=== PATIENT | female | born 1965 | race Two or more races ===

== ENCOUNTER 2017-04-26 09:10 | Emergency (ER) | payer MEDICAID ==
[~2017-04-26] VITALS: Ht 157.5 cm; Wt 70.3 kg
[~2017-04-26 09:10] MED LIST: KEFLEX500 M1 PO; LISINOPRIL 10MG10 MG PO; METFORMIN 500M500 MG PO; NORCO 325 MG-51 TAB PO; ZOFRAN ODT4 MG PO
--- OUTSIDE RECORDS SUMMARY | 2017-04-26 09:15 | External Medical Summary Rpt ---
Author Author [facility] Organization [facility] Address Unknown Phone Unavailable Care Team Providers Care Upholstery Sewer Name Role Phone DR GENE PCP [phone] Encounter [facility] [id number] Date(s): 11/08/16 - 11/09/16 [facility] [address] [place] [id number]- Discharge Diagnosis: Accelerated hypertension Discharge Disposition: IP Self Care / Home Attending Physician: JANINE CARRION Admitting Physician: JANINE CARRION Referring Physician: SARAH BARROW DO Reason for Visit UNSTABLE ANGINA Vital Signs Most recent 1 2 3 4 to oldest [Reference Range]: Temperature Oral (11/09/16 Oral (11/09/16 Oral (11/08/16 Source 2:59 PM) 4:01 AM) 6:06 PM) Temperature Fahrenheit Fahrenheit Fahrenheit Mode (11/09/16 2:59 (11/09/16 4:01 (11/08/16 6:06 PM) AM) PM) Temperature, 98.1 Deg F 98.2 Deg F 97.7 Deg F Fahrenheit (11/09/16 2:59 (11/09/16 7:00 (11/09/16 4:01 [96.8-99.7 PM) AM) AM) Deg F] Clinical 36.7 Deg C 36.8 Deg C 36.5 Deg C Temperature, (11/09/16 2:59 (11/09/16 7:00 (11/09/16 4:01 C PM) AM) AM) Peripheral 115 bpm Pulse Rate *HI*(11/08/16 [60-100 bpm] 6:06 PM) Heart Rate 100 bpm 93 bpm 84 bpm Monitored (11/09/16 2:59 (11/09/16 7:00 (11/09/16 6:06 [60-100 bpm] PM) AM) AM) Respiratory 20 20 23 Rate [14-20 Breaths/Min Breaths/Min Breaths/Min Breaths/Min] (11/09/16 2:59 (11/09/16 7:00 *HI*(11/09/16 PM) AM) 4:01 AM) Blood Arm, right Pressure upper Location (11/08/16 6:06 PM) Blood Non-Invasive Pressure BP Device Source (11/08/16 6:06 PM) Blood 137/91 mmHg 171/101 mmHg 155/97 mmHg Pressure (11/09/16 5:00 *HI*(11/09/16 *HI*(11/09/16 [90-140/60-9 PM) 2:59 PM) 11:00 AM) 0 mmHg] Mean 139 (11/09/16 108 (11/09/16 107 (11/09/16 Arterial 2:59 PM) 7:00 AM) 6:06 AM) Pressure (MAP)-BMDI Oxygen 95 % (11/09/16 95 % (11/08/16 96 % (11/08/16 Saturation 4:01 AM) 9:30 PM) 9:05 PM) [94-100 %] Oxygen Room air Room air Room air Room air Therapy Mode (11/09/16 9:08 (11/09/16 4:01 (11/08/16 (11/08/16 AM) AM) 10:27 PM) 10:27 PM) Blood 154/85 mmHg Pressure (11/09/16 5:05 Supine AM) Pulse Supine 91 bpm (11/09/16 5:05 AM) Blood 175/92 mmHg Pressure (11/09/16 5:05 Sitting AM) Pulse 95 bpm Sitting (11/09/16 5:05 AM) Blood 140/90 mmHg Pressure (11/09/16 5:05 Standing AM) Pulse 102 bpm Standing (11/09/16 5:05 AM) Height Stated Stated Stated Source (11/09/16 4:00 (11/08/16 (11/08/16 6:06 AM) 11:15 PM) PM) Height Entry [place] Format (11/09/16 4:00 (11/08/16 (11/08/16 6:06 AM) 11:15 PM) PM) Height/Lengt 5 ft (11/09/16 5 ft (11/08/16 5 ft (11/08/16 h, WELSH 4:00 AM) 11:15 PM) 6:06 PM) (ft) Height/Lengt 1 Inch 1 Inch 1 Inch h WELSH (11/09/16 4:00 (11/08/16 (11/08/16 6:06 AM) 11:15 PM) PM) CLINICALHEIG 154.94 cm 154.94 cm 154.94 cm HT (11/09/16 4:00 (11/08/16 (11/08/16 6:06 AM) 11:15 PM) PM) Weight Standing Source scale (11/08/16 11:15 PM) Weight Estimated Source, ED (11/08/16 6:06 PM) Weight Entry [place] Format (11/08/16 11:15 PM) Weight 155 lb [place] lb (11/08/16 11:15 PM) Weight 4 oz (11/08/16 [place] oz 11:15 PM) CLINICALWEIG 70.57 kg HT (11/08/16 11:15 PM) Body Surface 1.7 m2 Area (BSA) (11/08/16 11:15 PM) Body Mass 29.4 kg/m2 Index *HI*(11/08/16 [19.0-24.0 11:15 PM) kg/m2] Routine Standing Weight scale Source (11/09/16 4:00 AM) Routine [place] Weight Entry (11/09/16 4:00 Format AM) Routine 155 lb Weight, (11/09/16 4:00 Pounds AM) Routine 4 oz (11/09/16 Weight, 4:00 AM) Ounces Routine 70.57 kg Weight (11/09/16 4:00 Calculation AM) Body Surface 1.7 m2 Area (BSA), (11/09/16 4:00 Routine AM) [place] Body 47 kg 47 kg Weight (11/08/16 (11/08/16 6:06 11:15 PM) PM) Problem List Condition Effective Status Health Informant Dates Status Chest Active pain(Confirm ed) Diabetes(Con Active firmed) HTN Active (hypertensio n)(Confirmed ) Depression(C Active onfirmed) Allergies, Adverse Reactions, Alerts No Known Allergies Medications amLODIPine (amLODIPine 5 mg oral tablet)1 Tab, Oral, Every Day, Refills: 0Ordering provider: ESPERANZA MATHUR MD-INT aspirin (aspirin 81 mg oral delayed release tablet)1 Tab, Oral, Every Day, Refills: 0 atorvastatin (Lipitor 40 mg oral tablet)1 Tab, Oral, At Bedtime, Refills: 0Ordering provider: ESPERANZA MATHUR MD-INT carvedilol (Coreg 6.25 mg oral tablet)1 Tab, Oral, Two Times A Day, Refills: 0Ordering provider: ESPERANZA MATHUR MD-INT DULoxetine 20 mg, Oral, Every Day, Refills: 0 lisinopril 20 mg, Oral, Every Day, Refills: 0 metFORMIN 500 mg, Oral, Two Times A Day, Refills: 0 Results GENERAL CHEMISTRY Most recent 1 2 3 to oldest [Reference Range]: Sodium Level 136 mmol/L 139 mmol/L [136-146 (11/09/16 4:27 AM) (11/08/16 8:08 PM) mmol/L] Potassium 4.1 mmol/L 3.9 mmol/L Level (11/09/16 4:27 AM) (11/08/16 8:08 PM) [3.5-5.1 mmol/L] Chloride 101 mmol/L 104 mmol/L Level *LOW* (11/08/16 8:08 PM) [102-112 (11/09/16 4:27 AM) mmol/L] Carbon 28 mmol/L 27 mmol/L Dioxide (11/09/16 4:27 AM) (11/08/16 8:08 PM) Level [21-32 mmol/L] Anion Gap 11 12 [9-20] (11/09/16 4:27 AM) (11/08/16 8:08 PM) Glucose 391 mg/dL 448 mg/dL Level *HI* *HI* [74-106 (11/09/16 4:27 AM) (11/08/16 8:08 PM) mg/dL] Blood Urea 14 mg/dL 14 mg/dL Nitrogen (11/09/16 4:27 AM) (11/08/16 8:08 PM) [7-22 mg/dL] Creatinine 0.70 mg/dL 0.70 mg/dL Level (11/09/16 4:27 AM) (11/08/16 8:08 PM) [0.55-1.02 mg/dL] eGFR 107 mL/min/1.73m2 107 mL/min/1.73m2 [>=60 (11/09/16 4:27 AM) (11/08/16 8:08 PM) mL/min/1.73m 2] eGFR 88 mL/min/1.73m2 88 mL/min/1.73m2 NonAfrican (11/09/16 4:27 AM) (11/08/16 8:08 PM) [>=60 mL/min/1.73m 2] Bun/Creatini 20.0 20.0 ne (11/09/16 4:27 AM) (11/08/16 8:08 PM) [8.0-20.0] Calcium 8.9 mg/dL 8.3 mg/dL Level (11/09/16 4:27 AM) *LOW* [8.5-10.1 (11/08/16 8:08 PM) mg/dL] Magnesium 1.9 mg/dL 1.9 mg/dL Level (11/09/16 7:03 AM) (11/09/16 4:27 AM) [1.5-2.4 mg/dL] Device Notified Nurse Notified Nurse Notified Nurse Comment 1 RBV *NA*(11/09/16 RBV *NA*(11/09/16 RBV *NA*(11/09/16 1:51 PM) 9:12 AM) 6:37 AM) Glucose POC2 279 mg/dL 264 mg/dL 327 mg/dL [70-110 *HI* *HI* *HI* mg/dL] (11/09/16 4:01 PM) (11/09/16 1:51 PM) (11/09/16 9:12 AM) Calcium 1.22 mmol/L Ionized (11/09/16 7:03 AM) [1.12-1.32 mmol/L] CARDIAC SPECIFIC MARKERS Most recent 1 2 3 to oldest [Reference Range]: CK [26-192 52 Units/Liter 57 Units/Liter Units/Liter] (11/09/16 7:03 AM) (11/09/16 4:27 AM) Troponin I 0.027 ng/mL 0.025 ng/mL Ultra (11/09/16 4:27 AM) (11/08/16 8:08 PM) [0.015-0.045 ng/mL] CK MB 2.50 ng/mL 2.50 ng/mL [0.50-3.60 (11/09/16 4:42 PM) (11/09/16 7:03 AM) ng/mL] ProBNP 268 pg/mL [0-125 *HI* pg/mL] (11/08/16 8:08 PM) HEMATOLOGY Most recent 1 2 3 to oldest [Reference Range]: WBC 6.9 K/uL [4.0-10.0 (11/08/16 8:08 PM) K/uL] RBC 5.66 Million/uL [3.93-5.22 *HI* Million/uL] (11/08/16 8:08 PM) Hgb 13.3 g/dL [11.2-15.7 (11/08/16 8:08 PM) g/dL] Hct 42.2 % [34.1-44.9 (11/08/16 8:08 PM) %] MCV 74.6 fL [79.0-94.8 *LOW* fL] (11/08/16 8:08 PM) MCH 23.5 pg [25.6-32.2 *LOW* pg] (11/08/16 8:08 PM) MCHC 31.5 Gram/dL [32.2-36.5 *LOW* Gram/dL] (11/08/16 8:08 PM) Platelet 196 K/uL Count (11/08/16 8:08 PM) [163-369 K/uL] MPV 11.2 fL [9.4-12.4 (11/08/16 8:08 PM) fL] RDW 13.5 % [11.6-14.4 (11/08/16 8:08 PM) %] Neut % 61.7 % [34.0-71.0 (11/08/16 8:08 PM) %] Neut # 4.24 K/uL [1.56-6.13 (11/08/16 8:08 PM) K/uL] Lymph % 29.3 % [19.3-53.1 (11/08/16 8:08 PM) %] Lymph # 2.01 x10(3)/uL [1.00-3.90 (11/08/16 8:08 PM) x10(3)/uL] Steele % 7.1 % [3.0-9.0 %] (11/08/16 8:08 PM) [place] # 0.49 K/uL [0.16-1.00 (11/08/16 8:08 PM) K/uL] Eos % 1.5 % [0.0-7.0 %] (11/08/16 8:08 PM) Eos # 0.10 x10(3)/uL [0.00-0.80 (11/08/16 8:08 PM) x10(3)/uL] Baso % 0.3 % [0.0-1.5 %] (11/08/16 8:08 PM) Baso # 0.02 x10(3)/uL [0.00-0.20 (11/08/16 8:08 PM) x10(3)/uL] RBC Abnormal Morphology (11/08/16 8:08 PM) Teardrop 1+ Cells *ABN* (11/08/16 8:08 PM) Platelet Ct Adequate Estimate (11/08/16 8:08 PM) [Adequate] Reticulocyte 2.23 % [0.50-1.70 *HI* %] (11/09/16 4:27 AM) Slide Review Technologist (11/08/16 8:08 PM) IG# 0.01 x10(3)/uL [0.00-0.05 (11/08/16 8:08 PM) x10(3)/uL] IG% 0.10 % [0.00-0.60 (11/08/16 8:08 PM) %] ENDOCRINOLOGY Most recent 1 2 3 to oldest [Reference Range]: TSH 2.730 mcInt [0.358-3.740 Units/mL (11/09/16 mcInt 4:27 AM) Units/mL] Iron Studies Most recent 1 2 3 to oldest [Reference Range]: Iron Level 54 mcg/dL [50-170 (11/09/16 4:27 AM) mcg/dL] % Iron 15.3 % Saturation (11/09/16 4:27 AM) [15.0-55.0 %] Ferritin 51.3 ng/mL Level (11/09/16 4:27 AM) [8.0-252.0 ng/mL] TIBC 354 mcg/dL [250-450 (11/09/16 4:27 AM) mcg/dL] Immunizations No data available for this section Procedures No data available for this section Social History Social History Response Type Smoking Status Never smoker Assessment and Plan Extracted from: Title: Freetext Note Author: KAREEN, Date: 11/09/16 CRICKET AIKEN Discharge dictated. #[id number]. Extracted from: Title: Daily progress Author: KAREEN, Date: 11/09/16 note ESPERANZA Mcclellan MD-INT Subjective Patient reports a headache No chest pain now Reports she is hungry Awaiting stress evlauation No nausea now No absominal pain. No fever No cough. ObjectiveVS/MeasurementsVital Measurements11/09/2016 9:08 EDT Systolic Blood Pressure 159 mmHg HI Diastolic Blood Pressure 86 mmHg Oxygen Therapy Mode Room air11/09/2016 7:00 EDT Temperature, Fahrenheit 98.2 Deg F Clinical Temperature, C 36.8 Deg C Heart Rate Monitored 93 bpm Respiratory Rate 20 Breaths/Min Systolic Blood Pressure 171 mmHg HI Diastolic Blood Pressure 83 mmHg Mean Arterial Pressure (MAP)-BMDI 108General: Alert and oriented, anxious.Eye: Pupils are equal, round and reactive to light.HENT: Normocephalic.Neck: Supple, Non-tender, No jugular venous distention.Respiratory: Lungs are clear to auscultation, Respirations are non-labored, Breath sounds are equal, Symmetrical chest wall expansion.Cardiovascular: Normal rate, Regular rhythm.Gastrointestinal: Soft, Non-tender, Non-distended, Normal bowel sounds.Musculoskeletal: Normal range of motion, No tenderness, No swelling.Integumentary: Warm, Dry.Neurologic: Alert, Oriented.Psychiatric: anxious. Cardiovascular: Normal rate, Regular rhythm. Gastrointestinal: Soft, Non-tender, Non-distended, Normal bowel sounds. Musculoskeletal: Normal range of motion, No tenderness, No swelling. Integumentary: Warm, Dry. Neurologic: Alert, Oriented. Psychiatric: anxious. Assessment Interpretation of Results Diagnostic tests. NOV 09 04:27 136 | L 101 | 14 / H 391 4.1 | 28 | 0.70 \\ NOV 09 04:27 \\ 13.3 / 6.9 196 / 42.2 \\ Plan Accelerated hypertension Onnitro drip with presentation with chest pain Resume her lisnopril Adding norvasc. Wean as toleated CT head negative for bleed. Chest pain Enzymes negative. Brenda related to #1 Awaiting ECHO and stress test Cardiology evaluating Diabetes Place on insulin wtih coverge and obtain A1c Hold metformin. CXR reviewed Currently no concern for pneumonia Disposition:Await stress test Follow blood sugar Wean nitro and BP meds adjustment Discharge plans likely in am if above normal and BP better. Discussed with patient Time spent with above 30 minutes. Hospital Discharge Instructions Patient EducationHypertension"
--- OUTSIDE RECORDS SUMMARY | 2017-04-26 09:15 | External Medical Summary Rpt ---
Author Author [facility] Organization [facility] Address Unknown Phone Unavailable Care Team Providers Care Corporate Meeting Planner Name Role Phone DR GENE PCP [phone] Encounter [facility] [id number] Date(s): 11/08/16 - 11/09/16 [facility] [address] [place] [address]- Discharge Diagnosis: Accelerated hypertension Discharge Disposition: IP [...] 6:06 AM) 11:15 PM) PM) Height Entry [place] Format (11/09/16 4:00 (11/08/16 (11/08/16 6:06 AM) 11:15 PM) PM) Height/Lengt 5 ft (11/09/16 5 ft (11/08/16 5 ft (11/08/16 h, [place]PPER [place] 4:00 AM) 11:15 PM) 6:06 PM) (ft) Height/Lengt 1 Inch 1 Inch 1 Inch h [place]ER [place] (11/09/16 4:00 (11/08/16 (11/08/16 6:06 AM) 11:15 PM) PM) CLINICALHEIG 154.94 cm 154.94 cm 154.94 cm HT (11/09/16 4:00 (11/08/16 (11/08/16 6:06 AM) 11:15 PM) PM) Weight Standing Source scale (11/08/16 11:15 PM) Weight Estimated Source, ED (11/08/16 6:06 PM) Weight Entry [place] Format (11/08/16 11:15 PM) Weight 155 lb [place] lb (11/08/16 11:15 PM) Weight 4 oz (11/08/16 [place] oz 11:15 PM) CLINICALWEIG 70.57 kg HT (11/08/16 11:15 PM) Body Surface 1.7 m2 Area (BSA) (11/08/16 11:15 PM) Body Mass 29.4 kg/m2 Index *HI*(11/08/16 [19.0-24.0 11:15 PM) kg/m2] Routine Standing Weight scale Source (11/09/16 4:00 AM) Routine [place] Weight Entry (11/09/16 4:00 Format AM) Routine 155 lb Weight, (11/09/16 4:00 Pounds AM) Routine 4 oz (11/09/16 Weight, 4:00 AM) Ounces Routine 70.57 kg Weight (11/09/16 4:00 Calculation AM) Body Surface 1.7 m2 Area (BSA), (11/09/16 4:00 Routine AM) [place] Body 47 kg 47 kg Weight (11/08/16 [...] 2.01 x10(3)/uL [1.00-3.90 (11/08/16 8:08 PM) x10(3)/uL] [place] % 7.1 % [3.0-9.0 %] (11/08/16 8:08 PM) [place] # 0.49 K/uL [0.16-1.00 (11/08/16 8:08 PM) [...] KAREEN, Date: 11/09/16 CRICKET AIKEN Discharge dictated. #[id number]. Extracted from: Title: Daily progress Author: KAREEN, [...]
--- OUTSIDE RECORDS SUMMARY | 2017-04-26 09:16 | External Medical Summary Rpt | CCD ---
Author Author , [facility] Organization [facility] Address Unknown Phone [email or web address] Purpose Continuity of Care Document - 09-02-2016 through 2016 Problems Code Diagnosis DOS Provider Status E11.65 TYPE 2 04-24-2017 DIABETES MELLITUS WITH HYPERGLYCEM IA I10 ESSENTIAL 04-24-2017 (PRIMARY) HYPERTENSIO N R73.9 HYPERGLYCEM 04-24-2017 IA, UNSPECIFIED Z79.899 OTHER LONG 04-24-2017 TERM (CURRENT) DRUG THERAPY E11.9 TYPE 2 04-13-2017 DIABETES MELLITUS WITHOUT COMPLICATIO NS H10.9 UNSPECIFIED 04-13-2017 CONJUNCTIVI TIS B37.3 CANDIDIASIS 01-09-2017 OF VULVA AND VAGINA F17.210 NICOTINE 01-09-2017 DEPENDENCE, CIGARETTES, UNCOMPLICAT ED R30.0 DYSURIA 01-09-2017 S30.814A ABRASION OF 01-09-2017 VAGINA AND VULVA, INITIAL ENCOUNTER R07.9 CHEST PAIN, 11-29-2016 UNSPECIFIED S22.32XA FRACTURE OF 11-29-2016 ONE RIB, LEFT SIDE, INITIAL ENCOUNTER FOR CLOSED FRACTURE Z79.84 BAKER PASTRY 11-29-2016 (CURRENT) USE OF ORAL HYPOGLYCEMI C DRUGS J40 BRONCHITIS, 10-05-2016 NOT SPECIFIED ACUTE OR CHRONIC R06.02 SHORTNESS 10-05-2016 OF BREATH R00.0 TACHYCARDIA 09-16-2016 , UNSPECIFIED R07.89 OTHER CHEST 09-16-2016 PAIN R11.2 NAUSEA WITH 09-16-2016 VOMITING, UNSPECIFIED R94.31 ABNORMAL 09-16-2016 ELECTROCARD IOGRAM [ECG] [EKG] E66.9 OBESITY, 09-02-2016 UNSPECIFIED G43.901 MIGRAINE, 09-02-2016 UNSPECIFIED , NOT INTRACTABLE , WITH STATUS MIGRAINOSUS I20.0 UNSTABLE 09-02-2016 ANGINA Z68.29 BODY MASS 09-02-2016 INDEX (BMI) 29.0-29.9, ADULT E86.0 Dehydration F32.9 Major depressive disorder, single episode, unspecified 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
--- OUTSIDE RECORDS SUMMARY | 2017-04-26 09:16 | External Medical Summary Rpt | CCD ---
Author Author [facility] Organization [facility] Address Unknown Phone Unavailable Purpose Continuity of Care Document - through 2016
--- OUTSIDE RECORDS SUMMARY | 2017-04-26 09:16 | External Medical Summary Rpt | CCD ---
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
--- OUTSIDE RECORDS SUMMARY | 2017-04-26 09:16 | External Medical Summary Rpt ---
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 Role Phone DR GENE PCP [phone] Encounter [facility] [id number] Date(s): 03/02/17 - 03/03/17 [facility] [address] [place] [address]- Discharge Diagnosis: Diarrhea Discharge Diagnosis: Dehydration Discharge Diagnosis: Headache Discharge Diagnosis: Hyperglycemia Discharge Disposition: OP Self Care or Home Attending Physician: KENNEY HOLLINS MD Admitting Physician: KENNEY HOLLINS MD Referring Physician: KENNEY HOLLINS MD Reason for Visit DIARRHEA, UNSPECIFIED Vital Signs Most recent 1 2 3 to oldest [Reference Range]: Temperature Oral Oral Oral Source (03/03/17 6:33 AM) (03/03/17 2:16 AM) (03/02/17 6:25 PM) Temperature Fahrenheit Fahrenheit Fahrenheit Mode (03/03/17 6:33 AM) (03/03/17 2:16 AM) (03/02/17 6:47 PM) Temperature, 97.5 Deg F 98.3 Deg F 98.1 Deg F Fahrenheit (03/03/17 6:33 AM) (03/03/17 2:16 AM) (03/02/17 6:47 PM) [96.8-99.7 Deg F] Clinical 36.4 Deg C 36.7 Deg C 36.5 Deg C Temperature, (03/03/17 6:33 AM) (03/02/17 6:47 PM) (03/02/17 6:25 PM) C Peripheral 82 bpm 74 bpm 99 bpm Pulse Rate (03/03/17 6:33 AM) (03/03/17 2:16 AM) (03/02/17 6:47 PM) [60-100 bpm] Respiratory 19 Breaths/Min 17 Breaths/Min 18 Breaths/Min Rate [14-20 (03/03/17 6:33 AM) (03/03/17 2:16 AM) (03/02/17 6:47 PM) Breaths/Min] Blood Arm, right upper Arm, left upper Pressure (03/03/17 6:33 AM) (03/02/17 6:25 PM) Location Blood Non-Invasive BP Non-Invasive BP Pressure Device (03/03/17 Device (03/02/17 Source 6:33 AM) 6:25 PM) Blood 105/65 mmHg 144/62 mmHg 156/72 mmHg Pressure (03/03/17 6:33 AM) *HI* *HI* [90-140/60-9 (03/03/17 2:16 AM) (03/02/17 6:47 PM) 0 mmHg] Mean 89 mmHg 100 mmHg Arterial (03/03/17 2:16 AM) (03/02/17 6:25 PM) Pressure (MAP) Oxygen 96 % 94 % Saturation (03/03/17 2:16 AM) (03/02/17 6:25 PM) [94-100 %] Oxygen Room air Room air Room air Therapy Mode (03/03/17 6:33 AM) (03/03/17 2:16 AM) (03/02/17 6:25 PM) Height Estimated Source (03/02/17 6:47 PM) Height Entry [place] Format (03/02/17 6:47 PM) Height/Lengt 5 ft h, [place] (03/02/17 6:47 PM) (ft) Height/Lengt 2 Inch h POLISH (03/02/17 6:47 PM) CLINICALHEIG 157.48 cm HT (03/02/17 6:47 PM) Weight Critical Source, ED estimated dosing weight (03/02/17 6:47 PM) Weight Entry [place] Format (03/02/17 6:47 PM) Weight 149.93 lb [place] lb (03/02/17 6:47 PM) CLINICALWEIG 68.15 kg HT (03/02/17 6:47 PM) Body Surface 1.69 m2 Area (BSA) (03/02/17 6:47 PM) Body Mass 27.5 kg/m2 Index (BMI) *HI* [19-24 (03/02/17 6:47 PM) kg/m2] [place] Body 49.73 kg Weight (03/02/17 6:47 PM) Problem List Condition Effective Status Health Informant Dates Status Chest Active pain(Confirm ed) Diabetes(Con Active firmed) HTN Active (hypertensio n)(Confirmed ) Depression(C Active onfirmed) Allergies, Adverse Reactions, Alerts No Known Allergies Medications amLODIPine (amLODIPine 5 mg oral tablet)1 Tablet(s) Oral Every Day. Refills: 0.Ordering provider: ESPERANZA MATHUR MD-INT aspirin (aspirin 81 mg oral delayed release tablet)1 Tablet(s) Oral Every Day. atorvastatin (Lipitor 40 mg oral tablet)1 Tablet(s) Oral At Bedtime. Refills: 0.Ordering provider: ESPERANZA MATHUR MD-INT carvedilol (Coreg 6.25 mg oral tablet)1 Tablet(s) Oral Two Times A Day. Refills: 0.Ordering provider: ESPERANZA MATHUR MD-INT dicyclomine (Bentyl 10 mg oral capsule)2 Capsule(s) Oral Four Times A Day for 7 Day(s). Refills: 0.Ordering provider: DAVIE DOMINGUEZ PA DULoxetine 20 Milligram(s) Oral Every Day. lisinopril 20 Milligram(s) Oral Every Day. metFORMIN 500 Milligram(s) Oral Two Times A Day. ondansetron (Zofran ODT 4 mg oral tablet, disintegrating)1 Tablet(s) Oral Three Times A Day. Refills: 0.Ordering provider: DAVIE DOMINGUEZ PA Results GENERAL CHEMISTRY Most recent 1 2 3 to oldest [Reference Range]: Sodium Level 137 mmol/L [136-146 (03/02/17 10:04 mmol/L] PM) Potassium 5.5 mmol/L Level *HI*(03/02/17 [3.5-5.1 10:04 PM) mmol/L] Chloride 101 mmol/L Level *LOW*(03/02/17 [102-112 10:04 PM) mmol/L] Carbon 25 mmol/L Dioxide (03/02/17 10:04 Level [21-32 PM) mmol/L] Anion Gap 16 (03/02/17 10:04 [9-20] PM) Glucose 386 mg/dL Level *HI*(03/02/17 [74-106 10:04 PM) mg/dL] Blood Urea 23 mg/dL Nitrogen *HI*(03/02/17 [7-22 mg/dL] 10:04 PM) Creatinine 0.70 mg/dL Level (03/02/17 10:04 [0.55-1.02 PM) mg/dL] eGFR 127 mL/min/1.73m2 106 mL/min/1.73m2 [>=60 (03/03/17 12:55 (03/02/17 10:04 mL/min/1.73m AM) PM) 2] eGFR 105 mL/min/1.73m2 88 mL/min/1.73m2 NonAfrican (03/03/17 12:55 (03/02/17 10:04 [>=60 AM) PM) mL/min/1.73m 2] Bun/Creatini 32.9 *HI*(03/02/17 ne 10:04 PM) [8.0-20.0] (03/02/17 10:04 PM) Calcium 9.5 mg/dL Level (03/02/17 10:04 [8.5-10.1 PM) mg/dL] Protein 7.8 Gram/dL Total (03/02/17 10:04 [6.4-8.2 PM) Gram/dL] Albumin 3.3 Gram/dL Level *LOW*(03/02/17 [3.4-5.0 10:04 PM) Gram/dL] Globulin 4.5 Gram/dL [1.5-4.5 (03/02/17 10:04 Gram/dL] PM) A/G Ratio 0.7 *LOW*(03/02/17 [1.1-2.5] 10:04 PM) (03/02/17 10:04 PM) Bilirubin 0.5 mg/dL Total (03/02/17 10:04 [0.2-1.3 PM) mg/dL] Alk Phos 61 Units/Liter [27-136 (03/02/17 10:04 Units/Liter] PM) AST [5-37 33 Units/Liter Units/Liter] (03/02/17 10:04 PM) ALT [12-78 13 Units/Liter Units/Liter] (03/02/17 10:04 PM) Sodium POC 137 mmol/L [138-146 *LOW*(03/03/17 mmol/L] 12:55 AM) Potassium 5.1 mmol/L POC [3.5-4.9 *HI*(03/03/17 mmol/L] 12:55 AM) Chloride POC 100 mmol/L [98-109 (03/03/17 12:55 mmol/L] AM) CO2 POC 28.0 mmol/L [24.0-29.0 (03/03/17 12:55 mmol/L] AM) Anion Gap 15.0 mmol/L POC (03/03/17 12:55 [10.0-20.0 AM) mmol/L] Glucose POC 352 mg/dL [70-105 *HI*(03/03/17 mg/dL] 12:55 AM) Device Notified MD RBV Notified Nurse Notified Nurse Comment 1 *NA*(03/03/17 6:28 RBV *NA*(03/03/17 RBV *NA*(03/03/17 AM) 3:31 AM) 2:27 AM) Device Protocols Comment 2 Followed *NA*(03/03/17 6:28 AM) Glucose POC2 339 mg/dL 344 mg/dL 385 mg/dL [70-110 *HI*(03/03/17 6:28 *HI*(03/03/17 5:37 *HI*(03/03/17 3:31 mg/dL] AM) AM) AM) BUN POC 22 mg/dL (03/03/17 [8-26 mg/dL] 12:55 AM) Creatinine 0.6 mg/dL POC [0.6-1.3 (03/03/17 12:55 mg/dL] AM) Ca Ioniz POC 1.18 mmol/L [1.12-1.32 (03/03/17 12:55 mmol/L] AM) Lipase Level 476 Units/Liter [73-393 *HI*(03/02/17 Units/Liter] 10:04 PM) Lactic Acid 0.7 mmol/L 2.6 mmol/L Level 1(03/03/17 12:06 2*CRIT*(03/02/17 [0.4-2.0 AM) 10:04 PM) mmol/L] 1Result Comment: Released without repeat.2Result Comment: CALLED TO:Radha COVARRUBIASManuela DATE/TIME CALLED:03/02/2017 23:03:50 EDT READ BACK AND VERIFIED:yes CALLED BY: [email or web address] Most recent 1 2 3 to oldest [Reference Range]: WBC 7.1 K/uL (03/02/17 [4.0-10.0 10:04 PM) K/uL] RBC 6.05 Million/uL [3.93-5.22 *HI*(03/02/17 Million/uL] 10:04 PM) Hgb 14.3 g/dL [11.2-15.7 (03/02/17 10:04 g/dL] PM) Hct 45.0 % [34.1-44.9 *HI*(03/02/17 %] 10:04 PM) MCV 74.4 fL [79.0-94.8 *LOW*(03/02/17 fL] 10:04 PM) MCH 23.6 pg [25.6-32.2 *LOW*(03/02/17 pg] 10:04 PM) MCHC 31.8 Gram/dL [32.2-36.5 *LOW*(03/02/17 Gram/dL] 10:04 PM) Platelet 215 K/uL (03/02/17 Count 10:04 PM) [163-369 K/uL] MPV 11.2 fL (03/02/17 [9.4-12.4 10:04 PM) fL] RDW 14.0 % (03/02/17 [11.6-14.4 10:04 PM) %] Neut % 55.1 % (03/02/17 [34.0-71.0 10:04 PM) %] Neut # 3.92 K/uL [1.56-6.13 (03/02/17 10:04 K/uL] PM) Lymph % 33.0 % (03/02/17 [19.3-53.1 10:04 PM) %] Lymph # 2.34 x10(3)/uL [1.00-3.90 (03/02/17 10:04 x10(3)/uL] PM) Burt % 8.6 % (03/02/17 [3.0-9.0 %] 10:04 PM) Burt # 0.61 K/uL [0.16-1.00 (03/02/17 10:04 K/uL] PM) Eos % 2.0 % (03/02/17 [0.0-7.0 %] 10:04 PM) Eos # 0.14 x10(3)/uL [0.00-0.80 (03/02/17 10:04 x10(3)/uL] PM) Baso % 0.7 % (03/02/17 [0.0-1.5 %] 10:04 PM) Baso # 0.05 x10(3)/uL [0.00-0.20 (03/02/17 10:04 x10(3)/uL] PM) Hematocrit 44.0 % (03/03/17 POC 12:55 AM) [38.0-51.0 %] Hemoglobin 15.0 Gram/dL POC (03/03/17 12:55 [12.0-17.0 AM) Gram/dL] Slide Review No (03/02/17 10:04 PM) IG# 0.04 x10(3)/uL [0.00-0.05 (03/02/17 10:04 x10(3)/uL] PM) IG% 0.60 % (03/02/17 [0.00-0.60 10:04 PM) %] URINALYSIS Most recent 1 2 3 to oldest [Reference Range]: Urine Type U CleanCatch (03/03/17 1:36 AM) Urine Color Yellow *NA*(03/03/17 1:36 AM) Urine Clear (03/03/17 Appearance 1:36 AM) Urine >1.030 Specific *HI*(03/03/17 1:36 [place] AM) [1.005-1.030 ] Urine pH 5.0 *LOW*(03/03/17 Dipstick 1:36 AM) [6.0-8.0] (03/03/17 1:36 AM) Urine Negative (03/03/17 Leukocyte 1:36 AM) Esterase [Negative] Urine Negative (03/03/17 Nitrite 1:36 AM) [Negative] Urine 100 *ABN*(03/03/17 Protein 1:36 AM) Dipstick (03/03/17 1:36 AM) [Negative] Urine >=1000 Glucose *ABN*(03/03/17 Dipstick 1:36 AM) [Negative] Urine Negative (03/03/17 Ketones 1:36 AM) Dipstick [Negative] Urine 0.2 EU/dL Urobilinogen (03/03/17 1:36 AM) Dipstick Urine Negative (03/03/17 Bilirubin 1:36 AM) Dipstick [Negative] Urine Blood Negative (03/03/17 Dipstick 1:36 AM) [Negative] Ur WBC 2-5 /HPF *ABN*(03/03/17 1:36 AM) Ur Bacteria 1+ *ABN*(03/03/17 1:36 AM) (03/03/17 1:36 AM) Ur Mucous 1+ *ABN*(03/03/17 1:36 AM) (03/03/17 1:36 AM) Ur Amorph Trace *ABN*(03/03/17 1:36 AM) Ur 2-5 /HPF Epithelial *ABN*(03/03/17 Cells 1:36 AM) Ur Hyaline 0-2 /LPF Casts *ABN*(03/03/17 1:36 AM) Immunizations No data available for this section Procedures No data available for this section Social History Social History Response Type Smoking Status Never smoker Assessment and Plan No data available for this section Hospital Discharge Instructions Patient EducationDehydration, Adult Diarrhea Food Choices to Help Relieve Diarrhea, Adult General Headache Without Cause Hyperglycemia
--- OUTSIDE RECORDS SUMMARY | 2017-04-26 09:16 | External Medical Summary Rpt ---
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 Role Phone DR GENE PCP [phone] Encounter [facility] [id number] Date(s): 03/02/17 - 03/03/17 [facility] [address] [place] [id number]- Discharge Diagnosis: Diarrhea Discharge Diagnosis: Dehydration Discharge [...] Estimated Source (03/02/17 6:47 PM) Height Entry [place] Format (03/02/17 6:47 PM) Height/Lengt 5 ft h, [place] (03/02/17 6:47 PM) (ft) Height/Lengt 2 Inch h [place] (03/02/17 6:47 PM) CLINICALHEIG 157.48 cm HT (03/02/17 6:47 PM) Weight Critical Source, ED estimated dosing weight (03/02/17 6:47 PM) Weight Entry [place] Format (03/02/17 6:47 PM) Weight 149.93 lb [place] lb (03/02/17 6:47 PM) CLINICALWEIG 68.15 kg HT (03/02/17 6:47 PM) Body Surface 1.69 m2 Area (BSA) (03/02/17 6:47 PM) Body Mass 27.5 kg/m2 Index (BMI) *HI* [19-24 (03/02/17 6:47 PM) kg/m2] [place] Body 49.73 kg Weight (03/02/17 6:47 PM) [...] 2.34 x10(3)/uL [1.00-3.90 (03/02/17 10:04 x10(3)/uL] PM) [place] % 8.6 % (03/02/17 [3.0-9.0 %] 10:04 PM) [place] # 0.61 K/uL [0.16-1.00 (03/02/17 10:04 K/uL] [...] 1:36 AM) Urine >1.030 Specific *HI*(03/03/17 1:36 [place] AM) [1.005-1.030 ] Urine pH 5.0 *LOW*(03/03/17 [...]
--- OUTSIDE RECORDS SUMMARY | 2017-04-26 09:17 | External Medical Summary Rpt ---
Author Author [facility] [employer] [employer] Organization [facility] Address Unknown Phone Unavailable
--- OUTSIDE RECORDS SUMMARY | 2017-04-26 09:17 | External Medical Summary Rpt | CCD ---
Demographics Preferred Language Lao Marital Status Unknown Anglican Affiliation Unknown Race Unknown Ethnic Group Unknown Author Author , NANO SUAREZ Address Unknown Phone Immunization Unable to retrieve immunization data due to connection failure with Immunization Registry. Please try again later.
--- OUTSIDE RECORDS SUMMARY | 2017-04-26 09:17 | External Medical Summary Rpt | CCD ---
Demographics Preferred Language Romanian Marital Status Unknown Muslim Affiliation Unknown Race Unknown Ethnic Group Unknown Author Author , NANO SUAREZ Address Unknown Phone Immunization Unable to retrieve immunization data due to connection failure with Immunization Registry. Please try again later.
--- NOTE | 2017-04-26 09:32 | Emergency Room Report ---
History of Present Illness Time Seen by MD Narayanan Presenting Problem in Triage Pt arrived:Walked Presenting Problem:CHEST PAIN THAT PT STATES IS AGGRAVATED BY INSPIRATION; BLE PAIN THAT HAS BEEN GOING ON FOR MONTHS Onset of symptoms date/time:/ or onset unknown for:MEDICAL HX UNKNOWN Treatment Prior to Arrival: FOOT ORTHOPEDIST Provided by: Sepsis Risk Assessment: Temp: 98.3 B/P: 198/92 MAP: 127 Pulse: 75 Resp: 18 Recent fever? N Clinical Suspician of Infection? N Mental Status: 1 - Regular (Normal Baseline) Sepsis Risk:Low Sepsis Risk Have you (or family members/close friends) recently traveled outside the [place]? N If Yes, where/when: Have you had exposure to infectious disease within the past month? TB? Other? Specify: Patient presents to ED with multiple complaints. She has chronic neuropathy, and legs have been spasming for the last few days. She also has migraine headaches about every three weeks, and has had a classic migraine since yesterday. It is frontal, and she has a little photophobia. No new neurological symptoms. She also reports that this morning she was serving breakfast to family and noted some spasms to the mid chest area, now resolved. Nonradiating, with no SOB, no vomiting, no diaphoresis, no report of syncope. Cardiac RF's include DM and HTN. FH unknown as adopted. She denies known CAD, denies hyperlipidemia, denies tobacco use. ALLERGIES Coded Allergies: No Known Allergies (04/26/17) Home Medications Active Scripts Cephalexin (Keflex 500MG) 500 MG PO Q6 #40 CAPSULE Prov: 05/31/16 Ondansetron (Zofran 4MG Odt) 4 MG PO Q8HP PRN NAUSEA AND VOMITING #10 ODT Prov: 05/31/16 HYDROCODONE/ACETAMINOPHEN ([place] 5-325 Tablet) 1 TAB PO Q6HP PRN pain #6 TAB Prov: 05/31/16 METFORMIN HCL (Metformin 500MG) 500 MG PO BID #30 TAB Prov: 10/11/13 LISINOPRIL (Lisinopril) 10 MG PO DAILY #15 TAB Prov: 10/11/13 History Medical History General Angina: No RI: No Hypertension? Yes Hyperlipidemia? No CHF? No COPD? No Asthma? No CVA? No Seizures? No Diabetes? Yes Insulin Dependent: No Insulin Pump: No Home FSBS? Yes GB Disease: Yes MRSA? No TB? No Cancer? 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 Hx LMP N/A Social History Smoking Hx Smoker: Never Smoker Tobacco: No Type N/A Are you/the child exposed to second-hand smoke: No Alcohol Alcohol: No Review of Systems All Other Systems Reviewed and Negative Cardiovascular see HPI Musculoskeletal see HPI Psychiatric/Neurological headache (classic migraines Q 3 wks) Physical Exam Vital Signs Vital Signs Date Time Temp Pulse Resp B/P Pulse O2 O2 Flow FiO2 Ox Delivery Rate 04/26 1123 78 20 201/89 96 04/26 1041 20 04/26 1038 97.9 78 18 207/82 96 04/26 0920 98.3 75 18 198/92 96 General Appearance normal appearance, WD/WN, no apparent distress Eye Exam - bilateral eye normal exam, bilateral eye PERRL, bilateral eye EOMI (no diplopia) Neck normal inspection, non-tender, supple, full range of motion Respiratory Status Yes: trachea midline, chest symmetrical, non tender chest. No: respiratory distress, tender on palpation, use of accessory muscles, pain on inspiration, pain on expiration, productive cough, non productive cough. Lung Sounds bilateral: normal breath sounds, lungs clear. Cardiovascular normal exam, regular rate/rhythm, no peripheral edema, no gallop, no JVD, no murmur, no rub, normal peripheral pulses Gastrointestinal normal bowel sounds, normal exam, non tender, soft, no organomegaly, no guarding, no rebound Extremities non-tender, normal range of motion, normal inspection, normal capillary refill, no calf tenderness, pelvis stable (neg Durga's B) Strength 5 Upper Ext (L), 5 Upper Ext (R), 5 Lower Ext (L), 5 Lower Ext (R) Neurologic alert, personal chef II-XII nml as tested, normal exam, no motor/sensory deficits, oriented x 3, nonfocal; rough carpenter equal; speech clear and fluent; gait steady. Baseline peripheral neuropathy, otherwise sensory exam normal. Glascow Coma Scale Glascow Coma Scale Response Value EYE response: 4 Spontaneously 4 MOTOR response: 6 OBEYS 6 VERBAL response: 5 Oriented & Converses 5 Total 15 Skin intact, normal color, warm/dry, no rash cons.w/shingles Medical Decision Making LABS/Meds/Orders Pt receiving controlled substance in ED? No Results/Orders Laboratory Tests 04/26/17 1104: Urine Color Cancelled, Urine Appearance Cancelled, Urine pH Cancelled, Ur Specific [place] Cancelled 04/26/17 0930: Hemoglobin A1c 11.8 H 04/26/17 0930: Sodium 133 L, Potassium 5.4 H, Chloride 96 L, Carbon Dioxide 30, BUN 18, Creatinine 1.1 H, Estimated Creat Clear 66, Estimated GFR (MDRD) 52 L, Glucose 664 *H, Calcium 9.1, Total Bilirubin 0.3, AST 16, ALT 14, Alkaline Phosphatase 74, Creatine Kinase 57, CK-MB (CK-2) Rel Index 4.2 H, CK and CKMB Interp 2.4, Troponin I < 0.02, Total Protein 7.9, Albumin 3.3 L, Globulin 4.6 H, Albumin/ Globulin Ratio 0.7 L, WBC 5.4, RBC 6.08 H, Hgb 14.5, Hct 47.7 H, MCV 78.4 L, RDW 13.5, Plt Count 199, MPV 8.1, Gran % 65.6, Gran # 3.6, Lymphocytes % 24.9, Monocytes % 6.6, Eosinophils % 2.0, Basophils % 0.9, Lymphocytes # 1.4, Monocytes # 0.4, Eosinophils # 0.1, Basophils # 0.1, PUBS MCHC 30.4 L, MCH 23.8 L, Acetone Level SMALL Current Medication Orders Sig/Jeffy Start time Last Medication Dose Route Stop Time Status Admin Clonidine HCl 0 .STK-MED ONE 04/26 1117 DC .ROUTE Sodium Chloride 1,000 ML .Q1H1M 04/26 1115 DCD IV 04/26 1215 Sodium Chloride 10 ML PRN PRN 04/26 1115 DCD IV 04/27 1102 Lisinopril 10 MG ONCE ONE 04/26 1100 DC 04/26 PO 04/26 1101 1101 Lisinopril 0 .STK-MED ONE 04/26 1059 DC .ROUTE Ketorolac 30 MG ONCE ONE 04/26 1045 DC 04/26 Tromethamine IV 04/26 1046 1041 Sodium Chloride 1,000 ML .STK-MED ONE 04/26 1039 DC IV Ketorolac 0 .STK-MED ONE 04/26 1038 DC Tromethamine .ROUTE Sodium Chloride 1,000 ML .Q1H1M 04/26 1030 DCD 04/26 IV 04/26 1130 1041 Sodium Chloride 10 ML PRN PRN 04/26 1030 DCD IV 04/27 1028 Aspirin 324 MG ONCE ONE 04/26 0930 DC 04/26 PO 04/26 0931 0950 Sodium Chloride 10 ML PRN PRN 04/26 0930 DCD IV 04/27 0926 Orders Procedure Date/time Status GLYCOHEMOGLOBIN (A1C) 04/26 1043 Complete Acetone, Serum 04/26 1029 Complete ELECTROCARDIOGRAM REQUEST 04/26 926 Active IV SALINE LOCK 04/26 926 Active CBC WITH AUTO DIFF 04/26 926 Complete CARDIAC ENZYMES 04/26 926 Complete CHEM 12 PROFILE 04/26 926 Complete 12 LEAD EKG-BESSON (INITIAL) 04/26 UNK Active XRAY/CT/US XRAY/CT/US XRAY chest XR interpretation by reviewed by me Xray Results normal/NAD, no fracture seen, no infiltrates, normal heart size, normal lung inflation annette Consult MD Physician Consult Consult/PCP I reviewed case w/ instructional consultant PCP Dr. Stafford; agrees w/ plan to IVF, d/c Time Called 1107 Reason Pt. Condition Departure Departure Time of Disposition 1115 Disposition DC Home or Self Care(routine) Clinical Impression Primary Impression: Atypical chest pain Secondary Impressions: High blood sugar History of migraine headaches Migraine headache Qualifiers: Migraine type: without aura Status migrainosus presence: without status migrainosus Intractability: not intractable Qualified Code: G43.009 - Migraine without aura, not intractable, without status migrainosus Condition STABLE Patient Instructions DI for Atypical Chest Pain Additional Instructions See your PCP in [place] for recheck blood pressure in the next one to five days and for further medication recommendations and prescription refills; you may also see a local MD at your discretion, see list provided. Discharge Counseling Counseled pt/family regarding diagnosis, test results, medications/RX, home care, follow up needs ED Critical Care Critical Care No at 2002
--- NOTE | 2017-04-26 09:32 | Emergency Room Report ---
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 N Clinical Suspician of Infection? N Mental Status: 1 - Regular (Normal Baseline) Sepsis Risk:Low Sepsis Risk Have you (or family members/close friends) recently traveled outside the [place]? N If Yes, where/when: Have you had exposure to infectious disease within the past month? TB? Other? Specify: Patient presents to ED with multiple complaints. She has chronic neuropathy, and legs have been spasming for the last few days. She also has migraine headaches about every three weeks, and has had a classic migraine since yesterday. It is frontal, and she has a little photophobia. No new neurological symptoms. She also reports that this morning she was serving breakfast to family and noted some spasms to the mid chest area, now resolved. Nonradiating, with no SOB, no vomiting, no diaphoresis, no report of syncope. Cardiac RF's include DM and HTN. FH unknown as adopted. She denies known CAD, denies hyperlipidemia, denies tobacco use. ALLERGIES Coded Allergies: No Known Allergies (04/26/17) Home Medications Active Scripts Cephalexin (Keflex 500MG) 500 MG PO Q6 #40 CAPSULE Prov: 05/31/16 Ondansetron (Zofran 4MG Odt) 4 MG PO Q8HP PRN NAUSEA AND VOMITING #10 ODT Prov: 05/31/16 HYDROCODONE/ACETAMINOPHEN ([place] 5-325 Tablet) 1 TAB PO Q6HP PRN pain #6 TAB Prov: 05/31/16 METFORMIN HCL (Metformin 500MG) 500 MG PO BID #30 TAB Prov: 10/11/13 LISINOPRIL (Lisinopril) 10 MG PO DAILY #15 TAB Prov: 10/11/13 History Medical History General Angina: No CA: No Hypertension? Yes Hyperlipidemia? No CHF? No COPD? No Asthma? No CVA? No Seizures? No Diabetes? Yes Insulin Dependent: No Insulin Pump: No Home FSBS? Yes GB Disease: Yes MRSA? No TB? No Cancer? 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/A Social History Smoking Hx Smoker: Never Smoker Tobacco: No Type N/A Are you/the child exposed to second-hand smoke: No Alcohol Alcohol: No Review of Systems All Other Systems Reviewed and Negative Cardiovascular see HPI Musculoskeletal see HPI Psychiatric/Neurological headache (classic migraines Q 3 wks) Physical Exam Vital Signs Vital Signs Date Time Temp Pulse Resp B/P Pulse O2 O2 Flow FiO2 Ox Delivery Rate 04/26 1123 78 20 201/89 96 04/26 1041 20 04/26 1038 97.9 78 18 207/82 96 04/26 0920 98.3 75 18 198/92 96 General Appearance normal appearance, WD/WN, no apparent distress Eye Exam - bilateral eye normal exam, bilateral eye PERRL, bilateral eye EOMI (no diplopia) Neck normal inspection, non-tender, supple, full range of motion Respiratory Status Yes: trachea midline, chest symmetrical, non tender chest. No: respiratory distress, tender on palpation, use of accessory muscles, pain on inspiration, pain on expiration, productive cough, non productive cough. Lung Sounds bilateral: normal breath sounds, lungs clear. 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 Baseline peripheral neuropathy, otherwise sensory exam normal. Glascow Coma Scale Glascow Coma Scale Response Value EYE response: 4 Spontaneously 4 MOTOR response: 6 OBEYS 6 VERBAL response: 5 Oriented & Converses 5 Total 15 Skin intact, normal color, warm/dry, no rash cons.w/shingles Medical Decision Making LABS/Meds/Orders Pt receiving controlled substance in ED? No Results/Orders Laboratory Tests 04/26/17 1104: Urine Color Cancelled, Urine Appearance Cancelled, Urine pH Cancelled, Ur Specific [place] Cancelled 04/26/17 0930: Hemoglobin A1c 11.8 H 04/26/17 0930: Sodium 133 L, Potassium 5.4 H, Chloride 96 L, Carbon Dioxide 30, BUN 18, Creatinine 1.1 H, Estimated Creat Clear 66, Estimated GFR (MDRD) 52 L, Glucose 664 *H, Calcium 9.1, Total Bilirubin 0.3, AST 16, ALT 14, Alkaline Phosphatase 74, Creatine Kinase 57, CK-MB (CK-2) Rel Index 4.2 H, CK and CKMB Interp 2.4, Troponin I < 0.02, Total Protein 7.9, Albumin 3.3 L, Globulin 4.6 H, Albumin/ Globulin Ratio 0.7 L, WBC 5.4, RBC 6.08 H, Hgb 14.5, Hct 47.7 H, MCV 78.4 L, RDW 13.5, Plt Count 199, MPV 8.1, Gran % 65.6, Gran # 3.6, Lymphocytes % 24.9, Monocytes % 6.6, Eosinophils % 2.0, Basophils % 0.9, Lymphocytes # 1.4, Monocytes # 0.4, Eosinophils # 0.1, Basophils # 0.1, PUBS MCHC 30.4 L, MCH 23.8 L, Acetone Level SMALL Current Medication Orders Sig/Jeffy Start time Last Medication Dose Route Stop Time Status Admin Clonidine HCl 0 .STK-MED ONE 04/26 1117 DC .ROUTE Sodium Chloride 1,000 ML .Q1H1M 04/26 1115 DCD IV 04/26 1215 Sodium Chloride 10 ML PRN PRN 04/26 1115 DCD IV 04/27 1102 Lisinopril 10 MG ONCE ONE 04/26 1100 DC 04/26 PO 04/26 1101 1101 Lisinopril 0 .STK-MED ONE 04/26 1059 DC .ROUTE Ketorolac 30 MG ONCE ONE 04/26 1045 DC 04/26 Tromethamine IV 04/26 1046 1041 Sodium Chloride 1,000 ML .STK-MED ONE 04/26 1039 DC IV Ketorolac 0 .STK-MED ONE 04/26 1038 DC Tromethamine .ROUTE Sodium Chloride 1,000 ML .Q1H1M 04/26 1030 DCD 04/26 IV 04/26 1130 1041 Sodium Chloride 10 ML PRN PRN 04/26 1030 DCD IV 04/27 1028 Aspirin 324 MG ONCE ONE 04/26 0930 DC 04/26 PO 04/26 0931 0950 Sodium Chloride 10 ML PRN PRN 04/26 0930 DCD IV 04/27 0926 Orders Procedure Date/time Status GLYCOHEMOGLOBIN (A1C) 04/26 1043 Complete Acetone, Serum 04/26 1029 Complete ELECTROCARDIOGRAM REQUEST 04/26 926 Active IV SALINE LOCK 04/26 926 Active CBC WITH AUTO DIFF 04/26 926 Complete CARDIAC ENZYMES 04/26 926 Complete CHEM 12 PROFILE 04/26 926 Complete 12 LEAD EKG-BESSON (INITIAL) 04/26 UNK Active XRAY/CT/US XRAY/CT/US XRAY chest XR interpretation by reviewed by me Xray Results normal/NAD, no fracture seen, no infiltrates, normal heart size, normal lung inflation annette Consult MD Physician Consult Consult/PCP I reviewed case w/ front office secretary PCP Dr. Stafford; agrees w/ plan to IVF, d/c Time Called 1107 Reason Pt. Condition Departure Departure Time of Disposition 1115 Disposition DC Home or Self Care(routine) Clinical Impression Primary Impression: Atypical chest pain Secondary Impressions: High blood sugar History of migraine headaches Migraine headache Qualifiers: Migraine type: without aura Status migrainosus presence: without status migrainosus Intractability: not intractable Qualified Code: G43.009 - Migraine without aura, not intractable, without status migrainosus Condition STABLE Patient Instructions DI for Atypical Chest Pain Additional Instructions See your PCP in [place] for recheck blood pressure in the next one to five days and for further medication recommendations and prescription refills; you may also see a local MD at your discretion, see list provided. Discharge Counseling Counseled pt/family regarding diagnosis, test results, medications/RX, home care, follow up needs ED Critical Care Critical Care No at 2002
[2017-04-26 10:02] LABS: HEMOGLOBIN 14.5 g/dL (12.2-16.2); LYMPH # 1.4 K/mm3 (0.7-4.5); LYMPH % 24.9 % (10-50.0)
[2017-04-26 10:26] LABS: BUN 18 mg/dL (7-18)
[2017-04-26 10:27] LABS: GFR (ESTIMATED) 52 ML/MIN (59-)
[2017-04-26 11:23] VITALS: BP 201/89
--- NOTE | 2017-04-26 11:50 | RADIOLOGY REPORT PS360 ---
CHEST-PORTABLE HISTORY: Chest pain cp ORDERING PHYSICIAN: Chelly Almonte MD PATIENT AGE: 51 years COMPARISON: 10/11/2013 FINDINGS: The cardiomediastinal silhouette and pulmonary vascularity are within normal limits. There is a 2 cm rounded opacity in the right upper lobe suspicious for neoplasm. Focal consolidation is also a consideration. Recommend chest CT without and with contrast for further evaluation. There is some increased density in the right lower lung zone which may be due to atelectasis or infiltrate. No acute bony abnormalities. IMPRESSION: 1. 2 cm irregular rounded opacity right upper lobe suspicious for neoplasm. Recommend follow-up with chest CT without and with contrast 2. Right lower lobe atelectasis or infiltrate
== END 2017-04-26 11:24 | disposition home or self-care (01) ==
LOC: UTC 09:10 → ER 09:13
PROVIDERS: Emergency Medicine
DX: R07.89 Other chest pain (principal); G43.009 Migraine without aura, not intractable, without status migrainosus; I10 Essential (primary) hypertension; E11.9 Type 2 diabetes mellitus without complications